=== PATIENT | male | born 1980 | race Caucasian/White ===

== ENCOUNTER 2022-06-07 14:49 | Emergency (ER) | payer OTHER ==
[2022-06-07] MEDS ORDERED: KETOROLAC 30 MG/ML VIAL IVP STA (15:09)
[2022-06-07] MEDS ORDERED: morphine INJ 10 MG/ML 1ML (SYR OR VIAL) IVP STA (15:09)
--- NOTE | 2022-06-07 15:22 | ED General ---
General Chief Complaint: Chest Wall Stated Complaint: CHEST PAIN Source of Information: Patient History of Present Illness Date Seen by Provider: Jun 07, 2022 Time Seen by Provider: 14:54 Initial Comments 41-year-old male presenting with complaints of continued chest and body pain since being thrown from a horse on May 26. He has already been evaluated at [place] for the initial trauma as well as being seen in [facility]. He had come today to be seen in the clinic for establishing care and to get continued pain management. However the clinic told him to come to the emergency department for another evaluation of his injuries. He is supposed to be wearing a shoulder immobilizer or sling for his left arm because of the clavicle fracture but he presents with nothing in place here to the emergency department. He has extensive bruising and swelling to the anterior chest. He has clear breath sounds and oxygen saturation is 99 -100% on room air. Patient does state that he was power washing a deck and getting ready to stain it when he noticed that it was time for him to come for his appointment to be seen. Timing/Duration: Other (pain since 05/26 accident) Severity: Severe Modifying Factors: worse with Movement Associated Systoms: Chest Pain; No Cough, No Diaphoresis, No Fever/Chills, No Headaches, No Nausea/Vomiting, No Seizure, No Shortness of Air, No Syncope Allergies and Home Medications Allergies Coded Allergies: methylphenidate (Verified Allergy, Unknown, 06/07/22) Told he was allergic when he was a child Patient Home Medication List Home Medication List Reviewed: Yes Hydrocodone/Acetaminophen (Hydrocodone-Acetamin 10-325 mg) 10 Mg-325 Mg Tablet, 1 EACH PO Q6H PRN for PAIN-SEVERE (8-10) Prescribed by: JAVON PALACIO on 06/07/22 6749 Review of Systems Review of Systems Constitutional: No chills, No fever EENTM: no symptoms reported Respiratory: see HPI Cardiovascular: see HPI Gastrointestinal: no symptoms reported Genitourinary: no symptoms reported Musculoskeletal: see HPI Skin: change in color (bruising to chest wall with swelling) Psychiatric/Neurological: No Symptoms Reported Hematologic/Lymphatic: No Symptoms Reported Past Uvtwrgn-Vclhxs-Kjmmxd Hx Patient Social History Tobacco Use?: Yes Past Medical History Surgery/Hospitalization HX: Lumbar spine fusion with Dr. Whelan, Left clavicle fracture Physical Exam Vital Signs Vital Signs - First Documented 06/07/22 14:50 Temp 36.2 Pulse 84 Resp 17 B/P (MAP) 164/96 (118) Pulse Ox 98 O2 Delivery Room Air Capillary Refill : Height, Weight, BMI Height: '" Weight: lbs. oz. kg; BMI Method: General Appearance: Anxious, Mild Distress, Obese HEENT: PERRL/EOMI, Pharynx Normal, Moist Mucous Membranes Neck: Full Range of Motion, Supple, Tender Lateral (paraspinal cervical muscles are tight with spasms and tender to palpation. There is no pain over the cervical spine vertebrae themselves and no crepitus or step-offs) Respiratory: No Chest Non Tender (Tender to palpation of the anterior chest and proximal left clavicle. There is bruising and edema to the anterior chest indra cially around the proximal left clavicle.); Lungs Clear, Normal Breath Sounds, No Accessory Muscle Use, No Respiratory Distress Cardiovascular: Regular Rate, Rhythm, Normal Peripheral Pulses Gastrointestinal: Normal Bowel Sounds, No Pulsatile Mass, Non Tender, Soft Rectal: Deferred Back: No CVA Tenderness, No Vertebral Tenderness Extremity: Normal Capillary Refill, Normal Inspection, Normal Range of Motion, No Calf Tenderness, No Pedal Edema, Other (Tenderness to the left proximal clavicle and pain with movement of the left shoulder) Neurologic/Psychiatric: Alert, Oriented x3, No Motor/Sensory Deficits, pumper head II- XII Norm as Tested Skin: Warm/Dry, Ecchymosis (Bruising to the anterior chest wall especially around the left clavicle) Progress/Results/Core Measures Suspected Sepsis SIRS Temperature: Pulse: Respiratory Rate: Laboratory Tests 06/07/22 15:13: White Blood Count 9.4 Blood Pressure / Mean: Laboratory Tests 06/07/22 15:13: Creatinine 0.79, INR Comment 1.0, Platelet Count 354, Total Bilirubin 0.4 Results/Orders Lab Results Laboratory Tests Test 06/07/22 15:13 Range/Units White Blood Count 9.4 4.3-11.0 10^3/uL Red Blood Count 5.42 4.30-5.52 10^6/uL Hemoglobin 15.9 13.3-17.7 g/dL Hematocrit 46 40-54 % Mean Corpuscular Volume 86 80-99 fL Mean Corpuscular Hemoglobin 29 25-34 pg Mean Corpuscular Hemoglobin Concent 34 32-36 g/dL Red Cell Distribution Width 13.4 10.0-14.5 % Platelet Count 354 130-400 10^3/uL Mean Platelet Volume 9.1 9.0-12.2 fL Immature Granulocyte % (Auto) 0 % Neutrophils (%) (Auto) 51 42-75 % Lymphocytes (%) (Auto) 32 12-44 % Monocytes (%) (Auto) 8 0-12 % Eosinophils (%) (Auto) 7 0-10 % Basophils (%) (Auto) 1 0-10 % Neutrophils # (Auto) 4.9 1.8-7.8 10^3/uL Lymphocytes # (Auto) 3.0 1.0-4.0 10^3/uL Monocytes # (Auto) 0.8 0.0-1.0 10^3/uL Eosinophils # (Auto) 0.7 H 0.0-0.3 10^3/uL Basophils # (Auto) 0.1 0.0-0.1 10^3/uL Immature Granulocyte # (Auto) 0.0 0.0-0.1 10^3/uL Prothrombin Time 13.4 12.2-14.7 SEC INR Comment 1.0 0.8-1.4 Activated Partial Thromboplast Time 26 24-35 SEC Sodium Level 139 135-145 MMOL/L Potassium Level 4.3 3.6-5.0 MMOL/L Chloride Level 103 98-107 MMOL/L Carbon Dioxide Level 24 21-32 MMOL/L Anion Gap 12 5-14 MMOL/L Blood Urea Nitrogen 15 7-18 MG/DL Creatinine 0.79 0.60-1.30 MG/DL Estimat Glomerular Filtration Rate 114 BUN/Creatinine Ratio 19 Glucose Level 113 H 70-105 MG/DL Calcium Level 9.5 8.5-10.1 MG/DL Corrected Calcium 9.4 8.5-10.1 MG/DL Magnesium Level 1.8 1.6-2.4 MG/DL Total Bilirubin 0.4 0.1-1.0 MG/DL Aspartate Amino Transf (AST/SGOT) 60 H 5-34 U/L Alanine Aminotransferase (ALT/SGPT) 139 H 0-55 U/L Alkaline Phosphatase 107 40-136 U/L Myoglobin 69.4 <72.0 NG/ML Troponin I < 0.30 <0.30 NG/ML Pro-B-Type Natriuretic Peptide 358.0 H <125.0 PG/ML Total Protein 7.1 6.4-8.2 GM/DL Albumin 4.1 3.2-4.5 GM/DL Lipase 25 8-78 U/L My Orders Orders - JAVON PALACIO MD Cbc With Automated Diff (06/07/22 14:54) Magnesium (06/07/22 14:54) Chest 1 View Ap/Pa Only (06/07/22 14:54) Ekg Tracing (06/07/22 14:54) Comprehensive Metabolic Panel (06/07/22 14:54) Myoglobin Serum (06/07/22 14:54) Protime With Inr (06/07/22 14:54) Partial Thromboplastin Time (06/07/22 14:54) O2 (06/07/22 14:54) Monitor-Rhythm Ecg Trace Only (06/07/22 14:54) Ed Iv/Invasive Line Start (06/07/22 14:54) Lipase (06/07/22 14:54) Troponin I Fs (06/07/22 14:54) Probnp Fs (06/07/22 14:54) Morphine Injection (Morphine Injection (06/07/22 15:09) Ketorolac Injection (Toradol Injection) (06/07/22 15:09) Ct Cerv/Thoracic/Lumbar Wo (06/07/22 15:10) Ct Chest/Abdomen/Pelvis W (06/07/22 15:10) Iohexol Injection (Omnipaque 350 Mg/Ml 1 (06/07/22 15:45) Received Contrast (Hold Metformin- Contr (06/07/22 15:45) Sodium Chloride Flush (Catheter Flush Sy (06/07/22 15:45) Ns (Ivpb) (Sodium Chloride 0.9% Ivpb Bag (06/07/22 15:45) Collar-Soft (06/07/22 17:46) Medications Given in ED Current Medications Medications Dose Ordered Sig/Catherine Route Start Time Stop Time Status Last Admin Dose Admin Iohexol 100 ml ONCE ONCE IV 06/07/22 15:45 06/07/22 15:46 DC 06/07/22 16:21 100 ML Sodium Chloride 10 ml NEEDED PRN IV 06/07/22 15:45 06/07/22 17:57 DC 06/07/22 16:21 10 ML Sodium Chloride 100 ml ONCE ONCE IV 06/07/22 15:45 06/07/22 15:46 DC 06/07/22 16:21 100 ML Vital Signs/I&O 06/07/22 06/07/22 14:50 17:57 Temp 36.2 36.2 Pulse 84 84 Resp 17 17 B/P (MAP) 164/96 (118) 157/92 Pulse Ox 98 98 O2 Delivery Room Air Room Air Capillary Refill : Progress Note #1: Progress Note Obtain basic labs as well as electrocardiogram and chest x-ray. Since he has concerns for worsening injuries will repeat CT scan imaging to look for signs of internal bleeding or acute fractures beyond the clavicle fracture. Give IV morphine for pain. Progress Note #2: Progress Note Electrocardiogram does not show any acute ST elevation or ischemia. His chest x-ray did not show acute process other than the proximal left clavicle fracture. Labs appeared stable without acute significant abnormality. His cardiac enzymes were negative. Progress Note #3: Progress Note CT scan of the chest abdomen pelvis shows proximal left clavicle fracture. Otherwise there is no acute process in the thorax are abdomen and pelvis. CT scan of the cervical spine, thoracic spine, lumbar spine showed a nondisplaced lateral mass fracture of the C7 vertebrae without any impingement on the spine. He also has the medial left clavicle fracture. There is no fluid in his chest but it did look like he had a pulmonary contusion that was healing. Counseled patient on findings and advised since he already follows with Dr. WHELAN for his spine to give them a call. Placed in a cervical collar since he was 2 weeks out from the accident and advised to wear that until he can see Dr. Whelan. Diagnostic Imaging Diagonstic Imaging: CT Plain Films/CT/US/NM/MRI: chest, abdomen, pelvis Comments [facility] [place] [facility], [place] NAME: [facility] REC#: [id number] PT STATUS: REG ER : 1980 PHYSICIAN: JAVON PALACIO MD ADMIT DATE: 06/07/22/ER FS Signed Date of Exam:06/07/22 CT CHEST/ABDOMEN/PELVIS W PROCEDURE: CT chest, abdomen, and pelvis with contrast. TECHNIQUE: Multiple contiguous axial images were obtained through the chest, abdomen, and pelvis after the administration of intravenous contrast. Auto Exposure Controls were utilized during the CT exam to meet ALARA standards for radiation dose reduction. INDICATION: Chest and abdominal pain after injury. Thrown off of horse 10 days ago. COMPARISON: CT cervical, thoracic, and lumbar spine performed concurrently. FINDINGS: CHEST: There is a nondisplaced and mildly comminuted fracture involving the left medial head of the clavicle. There is no posterior displacement of the fracture, and the left subclavian vein is widely patent. No acute sternal fracture. No acute rib fracture. No scapular fracture on either side. No pleural effusion or pneumothorax. Airway is widely patent. There are minimal dependent ground-glass opacities in the lung bases favoring atelectasis versus less likely mild pulmonary contusion. Normal-caliber thoracic aorta without dissection. No pseudoaneurysm within the aorta. Normal heart size without pericardial effusion. No mediastinal or hilar lymphadenopathy. ABDOMEN AND PELVIS: No free intraperitoneal air or fluid. Diffuse hypoattenuation of the liver is indicative of hepatic steatosis. No hepatic or splenic lacerations. Pancreas is normal. No adrenal mass. No perinephric fluid collection to indicate hematoma. No renal laceration. The urinary bladder shows no features of rupture. Stomach is decompressed. No free intraperitoneal air or fluid. No dilated loops of bowel or pericolonic inflammatory change. There is no acute fracture within the proximal femurs or pelvis. IMPRESSION: 1. Acute and mildly comminuted fracture of the left medial clavicular head. There is no posterior displacement or injury at the vasculature adjacent to the fracture. 2. There are small regions of ground-glass attenuation in the dependent aspect of both lower lobes, larger on the left. These are most likely sites of dependent atelectasis, although small sites of resolving pulmonary contusion could also give this appearance. 3. No acute traumatic visceral injury in the abdomen or pelvis. 4. No acute fracture in the pelvis or proximal femurs. Dictated by: Dictated on workstation # [id number] Dict: 06/07/22 1646 Trans: 06/07/221700 [id number] Interpreted by: YENIFER MALHOTRA MD Electronically signed by: YENIFER MALHOTRA MD 09/01/22 1701 Diagonstic Imaging: Xray Plain Films/CT/US/NM/MRI: chest Comments [facility] [place] [place] NAME: V[facility]YA [facility] REC#: [id number] PT STATUS: REG ER : 1980 PHYSICIAN: JAVON PALACIO MD ADMIT DATE: 06/07/22/ER FS Signed Date of Exam:06/07/22 CHEST 1 VIEW AP/PA ONLY INDICATION: Chest and back pain. TECHNIQUE: Single view chest 3:04 PM. CORRELATION STUDY: None FINDINGS: The heart size, mediastinal configuration and pulmonary vascularity are within normal limits. The lungs are clear with no consolidating infiltrate. There is no significant effusion or pneumothorax. IMPRESSION: 1. Negative appearing portable chest. Dictated by: Dictated on workstation # [id number] Dict: 06/07/22 1524 Trans: 06/07/22 1636 DO [id number] Interpreted by: CAROL BOOTH DO Electronically signed by: CAROL BOOTH DO 06/07/22 1636 Diagonstic Imaging: CT Plain Films/CT/US/NM/MRI: c-spine (Thoracic and Lumbar spine) Comments [facility] [place] [place] NAME: V[facility]YA [facility] REC#: [id number] PT STATUS: REG ER : 1980 PHYSICIAN: JAVON PALACIO MD ADMIT DATE: 06/07/22/ER FS Signed Date of Exam:06/07/22 CT CERV/THORACIC/LUMBAR WO CT CERV/THORACIC/LUMBAR WO INDICATION: Back pain after thrown from a horse 10 days ago. COMPARISON: None available. TECHNIQUE: CT imaging of the cervical, thoracic, and lumbar spine was performed without contrast. Automatic exposure controls were utilized to keep dose as low as reasonably achievable. FINDINGS: CERVICAL SPINE: Mild straightening of the cervical spine without traumatic subluxation. There appears to be a nondisplaced fracture in the left lateral mass of C7 with fracture involving the transverse process in the anterior rim of the transverse foramen. There are no fragments displaced into the transverse foramen. No additional acute fracture within the cervical spine. No high-grade spinal canal stenosis. There is an acute, mildly comminuted fracture involving the medial head of the left clavicle. No fracture within the visualized aspects of the first ribs. THORACIC SPINE: No acute fracture or traumatic malalignment of the thoracic spine. There is no spinal canal stenosis. No paravertebral hematoma. Visualized portions of the posterior ribs are intact. LUMBAR SPINE: No acute fracture or traumatic malalignment in the lumbar spine. No high-grade spinal canal stenosis. Degenerative disc disease does result in mild spinal canal stenosis at L2-L3. Right hemilaminectomy of L4 and L5. No concerning abnormality in the retroperitoneum. IMPRESSION: 1. There is an acute fracture in the left lateral mass of C7 with fracture line involving rim of the transverse foramen. There are no displaced ossific fragments into the transverse foramen. Consideration should be given to a CTA neck to evaluate for potential vertebral artery injury. 2. Fracture of the left medial clavicular head. Please see CT chest report for more complete details. 3. No acute fracture in the thoracic or lumbar spine. Dictated by: Dictated on workstation # [id number] Dict: 06/07/22 1636 Trans: 06/07/22 1700 [id number] Interpreted by: YENIFER MALHOTRA MD Electronically signed by: YENIFER MALHOTRA MD 06/07/22 1700 Departure Impression Primary Impression: Traumatic closed fx of proximal clavicle with minimal displacement Qualified Codes: S42.012A - Anterior displaced fracture of sternal end of left clavicle, initial encounter for closed fracture Additional Impressions: Fracture of cervical spine without spinal cord lesion Qualified Codes: S12.9XXD - Fracture of neck, unspecified, subsequent encounter Animal-rider injured by fall from or being thrown from horse in noncollision accident, subsequent encounter Disposition: 01 HOME, SELF-CARE Condition: Stable Departure-Patient Inst. Decision time for Depature: 17:47 Referrals: JASPREET ERNANDEZ APRN (PCP) Primary Care Physician [facility] (Family) Primary Care Physician LOGAN WHELAN MD Patient Instructions: Broken Collarbone ED, Neck Fracture (DC) Add. Discharge Instructions: Wear soft cervical collar to help give support to your neck. Call Dr. Whelan in the morning to arrange follow up about the non-displaced fracture of the lateral mass of the 7th cervical vertebra. This usually heals on its own but he may want to have you seen about the fracture. Check with primary care for continued pain management for your collar bone fracture. May apply ice pack 15-20 minutes every few hours as needed to help with pain and swelling with the collar bone and chest. All discharge instructions reviewed with patient and/or family. Voiced understanding. Scripts Hydrocodone/Acetaminophen (Hydrocodone-Acetamin 10-325 mg) 10 Mg-325 Mg Tablet 1 EACH PO Q6H PRN for PAIN-SEVERE (8-10) for 5 Days, #20 TAB 0 Refills Prov: JAVON PALACIO MD 06/07/22 JAVON PALACIO MD Jun 07, 2022 15:22
--- NOTE | 2022-06-07 15:25 | Diagnostic Imaging Report ---
INDICATION: Chest and back pain. TECHNIQUE: Single view chest 3:04 PM. CORRELATION STUDY: None FINDINGS: The heart size, mediastinal configuration and pulmonary vascularity are within normal limits. The lungs are clear with no consolidating infiltrate. There is no significant effusion or pneumothorax. IMPRESSION: 1. Negative appearing portable chest. Dictated by: Dictated on workstation # [id number]
[2022-06-07 15:37] LABS: BASOPHILS # (AUTO) 0.1 10^3/uL (0.0-0.1); BASOPHILS % (AUTO) 1 % (0-10); EOSINOPHILS # (AUTO) 0.7 10^3/uL (0.0-0.3); EOSINOPHILS % (AUTO) 7 % (0-10); HEMATOCRIT 46 % (40-54); HEMOGLOBIN 15.9 g/dL (13.3-17.7); LYMPHOCYTES % (AUTO) 32 % (12-44); MEAN CORPUSCULAR HEMOGLOBIN 29 pg (25-34); MEAN CORPUSCULAR HGB CONC 34 g/dL (32-36); MEAN CORPUSCULAR VOLUME 86 fL (80-99); MEAN PLATELET VOLUME 9.1 fL (9.0-12.2); MONOCYTES # (AUTO) 0.8 10^3/uL (0.0-1.0); MONOCYTES % (AUTO) 8 % (0-12); NEUTROPHILS # (AUTO) 4.9 10^3/uL (1.8-7.8); NEUTROPHILS % (AUTO) 51 % (42-75); PLATELET COUNT 354 10^3/uL (130-400); WHITE BLOOD COUNT 9.4 10^3/uL (4.3-11.0)
[2022-06-07 15:43] LABS: PROTHROMBIN TIME PATIENT 13.4 SEC (12.2-14.7)
[2022-06-07] MEDS ORDERED: NS 100 ML (IVPB) BAG IV ONE (15:45)
[2022-06-07] MEDS ORDERED: CATHETER FLUSH 10 ML SYR IV PRN (15:45)
[2022-06-07] MEDS ORDERED: HOLD METFORMIN - RECEIVED CONTRAST 20 ML VIAL IV SCH (15:45)
[2022-06-07] MEDS ORDERED: IOHEXOL 350 MG/ML 100 ML (OMNIPAQUE 350) VIAL IV ONE (15:45)
[2022-06-07 15:57] LABS: POTASSIUM 4.3 MMOL/L (3.6-5.0)
[2022-06-07 15:58] LABS: BILIRUBIN,TOTAL 0.4 MG/DL (0.1-1.0); CALCIUM 9.5 MG/DL (8.5-10.1); CREATININE SERUM 0.79 MG/DL (0.60-1.30); MAGNESIUM 1.8 MG/DL (1.6-2.4); TOTAL PROTEIN 7.1 GM/DL (6.4-8.2)
[2022-06-07 15:59] LABS: ALBUMIN 4.1 GM/DL (3.2-4.5)
--- NOTE | 2022-06-07 16:50 | Diagnostic Imaging Report ---
CT CERV/THORACIC/LUMBAR WO INDICATION: Back pain after thrown from a horse 10 days ago. COMPARISON: None available. TECHNIQUE: CT imaging of the cervical, thoracic, and lumbar spine was performed without contrast. Automatic exposure controls were utilized to keep dose as low as reasonably achievable. FINDINGS: CERVICAL SPINE: Mild straightening of the cervical spine without traumatic subluxation. There appears to be a nondisplaced fracture in the left lateral mass of C7 with fracture involving the transverse process in the anterior rim of the transverse foramen. There are no fragments displaced into the transverse foramen. No additional acute fracture within the cervical spine. No high-grade spinal canal stenosis. There is an acute, mildly comminuted fracture involving the medial head of the left clavicle. No fracture within the visualized aspects of the first ribs. THORACIC SPINE: No acute fracture or traumatic malalignment of the thoracic spine. There is no spinal canal stenosis. No paravertebral hematoma. Visualized portions of the posterior ribs are intact. LUMBAR SPINE: No acute fracture or traumatic malalignment in the lumbar spine. No high-grade spinal canal stenosis. Degenerative disc disease does result in mild spinal canal stenosis at L2-L3. Right hemilaminectomy of L4 and L5. No concerning abnormality in the retroperitoneum. IMPRESSION: 1. There is an acute fracture in the left lateral mass of C7 with fracture line involving rim of the transverse foramen. There are no displaced ossific fragments into the transverse foramen. Consideration should be given to a CTA neck to evaluate for potential vertebral artery injury. 2. Fracture of the left medial clavicular head. Please see CT chest report for more complete details. 3. No acute fracture in the thoracic or lumbar spine. Dictated by: Dictated on workstation # [id number]
--- NOTE | 2022-06-07 16:57 | Diagnostic Imaging Report ---
PROCEDURE: CT chest, abdomen, and pelvis with contrast. TECHNIQUE: Multiple contiguous axial images were obtained through the chest, abdomen, and pelvis after the administration of intravenous contrast. Auto Exposure Controls were utilized during the CT exam to meet ALARA standards for radiation dose reduction. INDICATION: Chest and abdominal pain after injury. Thrown off of horse 10 days ago. COMPARISON: CT cervical, thoracic, and lumbar spine performed concurrently. FINDINGS: CHEST: There is a nondisplaced and mildly comminuted fracture involving the left medial head of the clavicle. There is no posterior displacement of the fracture, and the left subclavian vein is widely patent. No acute sternal fracture. No acute rib fracture. No scapular fracture on either side. No pleural effusion or pneumothorax. Airway is widely patent. There are minimal dependent ground-glass opacities in the lung bases favoring atelectasis versus less likely mild pulmonary contusion. Normal-caliber thoracic aorta without dissection. No pseudoaneurysm within the aorta. Normal heart size without pericardial effusion. No mediastinal or hilar lymphadenopathy. ABDOMEN AND PELVIS: No free intraperitoneal air or fluid. Diffuse hypoattenuation of the liver is indicative of hepatic steatosis. No hepatic or splenic lacerations. Pancreas is normal. No adrenal mass. No perinephric fluid collection to indicate hematoma. No renal laceration. The urinary bladder shows no features of rupture. Stomach is decompressed. No free intraperitoneal air or fluid. No dilated loops of bowel or pericolonic inflammatory change. There is no acute fracture within the proximal femurs or pelvis. IMPRESSION: 1. Acute and mildly comminuted fracture of the left medial clavicular head. There is no posterior displacement or injury at the vasculature adjacent to the fracture. 2. There are small regions of ground-glass attenuation in the dependent aspect of both lower lobes, larger on the left. These are most likely sites of dependent atelectasis, although small sites of resolving pulmonary contusion could also give this appearance. 3. No acute traumatic visceral injury in the abdomen or pelvis. 4. No acute fracture in the pelvis or proximal femurs. Dictated by: Dictated on workstation # [id number]
[2022-06-07] MEDS ORDERED: HYDR-3820 PO (17:50)
[2022-06-07 17:57] VITALS: BP 157/92
== END 2022-06-07 17:56 | disposition home or self-care (01) ==
LOC: ER FS 14:53
DX: S42.002A Fracture of unspecified part of left clavicle, initial encounter for closed fracture (principal); S12.601A Unspecified nondisplaced fracture of seventh cervical vertebra, initial encounter for closed fracture; E66.9 Obesity, unspecified; Z28.310 Unvaccinated for COVID-19; V80.010A Animal-rider injured by fall from or being thrown from horse in noncollision accident, initial encounter
CPT/HCPCS: 36415; 71045; 71260; 72125; 72128; 72131; 74177; 80053; 83690; 83735; 83874; 83880; 84484; 85025; 85610; 85730; 93005; 93041; Q9967